=== PATIENT | female | born 1955 | race Caucasian/White ===

== ENCOUNTER 2017-06-22 08:19 | Inpatient (IN) | payer OTHER ==
[~2017-06-22] VITALS: Ht 152.4 cm; Wt 72.6 kg
[2017-06-22 08:35] VITALS: BP_SYST 160
[2017-06-22 09:09] LABS: BASOPHILS # (AUTO) 0.1 K/uL (0.0-0.2); BASOPHILS % (AUTO) 0.7 % (0.0-2.0); EOSINOPHILS # (AUTO) 0.3 K/uL (0.0-0.4); EOSINOPHILS % (AUTO) 3.2 % (0.0-4.0); HEMATOCRIT 46.6 % (36-48); HEMOGLOBIN 15.5 g/dL (12.0-16.0); LYMPHOCYTES # (AUTO) 2.6 K/uL (1.0-5.5); LYMPHOCYTES % (AUTO) 25.9 % (20.5-51.5); MEAN CORPUSCULAR HEMOGLOBIN 30 pg (27-31); MEAN CORPUSCULAR HGB CONC 33 % (32-36); MEAN CORPUSCULAR VOLUME 91 fL (79.0-98.0); MONOCYTES # (AUTO) 0.4 K/uL (0.0-1.0); MONOCYTES % (AUTO) 4.1 % (1.7-9.3); NEUTROPHILS # (AUTO) 6.6 K/uL (1.8-7.7); NEUTROPHILS % (AUTO) 66.1 % (40.0-70.0); PLATELET COUNT (AUTO) 240 K/uL (130-430); RED BLOOD CELL COUNT(AUTO) 5.11 MIL/uL (4.2-6.2); RED CELL DISTRIBUTION WIDTH 12.6 % (9.0-15.0)
[2017-06-22 09:25] LABS: BILIRUBIN,URINE NEGATIVE (NEGATIVE); BLOOD, URINE 1+ (NEGATIVE); CLARITY/URINE SL HAZY (CLEAR); COLOR,URINE YELLOW (YELLOW); GLUCOSE,URINE NEGATIVE (NEGATIVE); KETONES,URINE NEGATIVE (NEGATIVE); LEUKOCYTE ESTERASE ,URINE TRACE (NEGATIVE); NITRITE, URINE NEGATIVE (NEGATIVE); PROTEIN URINE NEGATIVE (NEGATIVE); UROBILINOGEN,URINE 0.2 (0.2-1.0)
[2017-06-22 09:27] LABS: CALCIUM 9.1 mg/dL (8.4-11.0); CREATININE 0.69 mg/dL (0.55-1.30); POTASSIUM 3.5 mmol/L (3.5-5.1)
[2017-06-22 09:32] LABS: ALBUMIN 3.9 g/dL (3.4-4.8); TOTAL BILIRUBIN 1.1 mg/dL (0.0-1.0)
[2017-06-22 09:36] LABS: INR 0.9 (0.8-1.2); PROTHROMBIN TIME 9.4 SECS (9.5-12.5)
[2017-06-22 09:54] LABS: BACTERIA,URINE FEW /HPF (None Seen); MUCUS,URINE 1+ /LPF (None Seen)
[2017-06-22] MEDS ORDERED: LOSA100T11 PO (10:08)
[2017-06-22] MEDS ORDERED: HYDR25TA4 PO (10:08)
[2017-06-22] MEDS ORDERED: NIFE20CA PO (10:08)
[2017-06-22] MEDS ORDERED: LORazepam 2 MG/ML VIAL (FOR ER USE) IVP ONE (10:15)
[2017-06-22 11:00] VITALS: BP_SYST 159
[2017-06-22 11:27] VITALS: BP_SYST 148
[2017-06-22 16:29] VITALS: BP_SYST 132
[2017-06-22 19:38] VITALS: BP_SYST 145
[2017-06-22] MEDS ORDERED: DEXTROSE 50% JECT 50 ML DISP.SYRIN IVP PRN (23:30)
[2017-06-23 00:32] VITALS: BP_SYST 156
[2017-06-23 03:49] VITALS: BP_SYST 146
[2017-06-23] MEDS: INSULIN REGULAR, HUMAN 100 UNITS/ML, 10 ML VIAL (novoLIN R) SUBCUT PRN ×3 (06:09→17:59)
[2017-06-23] MEDS ORDERED: ASPIRIN 325 MG TABLET PO SCH (09:00)
[2017-06-23] MEDS ORDERED: HYDROCHLOROTHIAZIDE 25 MG TABLET (HCTZ) PO SCH (09:00)
[2017-06-23] MEDS ORDERED: LOSARTAN POTASSIUM 50 MG TABLET (COZAAR) PO SCH (09:00)
[2017-06-23 12:49] VITALS: BP_SYST 153
[2017-06-23 16:00] VITALS: BP_SYST 141
[2017-06-23] MEDS ORDERED: GLU500 PO (16:18)
[2017-06-23] MEDS ORDERED: ASPI325T2 PO (16:19)
[2017-06-23] MEDS ORDERED: LIP10 PO (16:19)
[2017-06-23 19:32] VITALS: BP_SYST 150
== END 2017-06-23 19:50 | disposition home or self-care (01) | DRG 69 ==
LOC: SED 08:19 → STU 10:35
PROVIDERS: ADMIT Internal Medicine Hospice and Palliative Medicine; ATTEND Internal Medicine Hospice and Palliative Medicine
DX: G45.9 Transient cerebral ischemic attack, unspecified (principal); E11.9 Type 2 diabetes mellitus without complications; E78.00 Pure hypercholesterolemia, unspecified; F17.210 Nicotine dependence, cigarettes, uncomplicated; J45.909 Unspecified asthma, uncomplicated; I10 Essential (primary) hypertension; Z91.19 Patient's noncompliance with other medical treatment and regimen; Z90.49 Acquired absence of other specified parts of digestive tract; Z88.0 Allergy status to penicillin; Z88.5 Allergy status to narcotic agent; Z79.899 Other long term (current) drug therapy
CPT/HCPCS: 36415; 70450-TC; 70551; 71010; 80053; 80061; 81000-TC; 82962; 83880; 84443-TC; 84484; 85025; 85610-TC; 85730-TC; 87086; 93005; 93306; 93880; 96374; 99285; J1815; J2060

== ENCOUNTER 2017-07-28 08:26 | Outpatient (CLI) | payer OTHER ==
[~2017-07-28 08:26] MED LIST: ASPI325T2 PO; GLU500 PO; HYDR25TA4 PO; LIP10 PO; LOSA100T11 PO; NIFE20CA PO
== END 2017-07-28 19:17 | disposition home or self-care (01) ==
LOC: SMA 08:26
PROVIDERS: ATTEND Family Medicine
DX: Z12.31 Encounter for screening mammogram for malignant neoplasm of breast (principal)
CPT/HCPCS: G0202

== ENCOUNTER 2018-02-01 10:50 | Outpatient (CLI) | payer OTHER | END 2018-02-01 19:01 | disposition home or self-care (01) | LOC: SRD 10:50 | PROVIDERS: ATTEND Family Medicine | DX: M17.12 Unilateral primary osteoarthritis, left knee (principal); I10 Essential (primary) hypertension; E11.9 Type 2 diabetes mellitus without complications; E78.00 Pure hypercholesterolemia, unspecified; Z79.899 Other long term (current) drug therapy | CPT/HCPCS: 73564 ==

== ENCOUNTER 2019-05-27 15:19 | Outpatient (CLI) | payer OTHER ==
[~2019-05-27 15:19] MED LIST changes: +ASPI-989 PO; -ASPI325T2 PO; -LOSA100T11 PO; +LOSA100T3 PO
== END 2019-05-27 20:59 | disposition home or self-care (01) ==
LOC: SRD 15:19
PROVIDERS: ATTEND Family Medicine
DX: J45.909 Unspecified asthma, uncomplicated (principal)
CPT/HCPCS: 71046-TC

== ENCOUNTER 2021-12-18 17:18 | Emergency (ER) | payer OTHER ==
[~2021-12-18] VITALS: Ht 152.4 cm; Wt 79.4 kg
--- NOTE | 2021-12-18 17:32 | NUR ---
Placed in room 08 . Placed on instructional developer, blood pressure machine and pulse oximeter. To gown for exam. Side rails up.
[2021-12-18 17:34] VITALS: BP_SYST 166
--- NOTE | 2021-12-18 17:40 | NUR ---
PT HERE FOR SOB AND WHEEZING X2 WEEKS GETTING WORSE RECENTLY. PT ABLE TO SPEAK FULL SENTENCES. NO ACUTE DISTRESS.
[2021-12-18] MEDS ORDERED: PROMETHAZINE-DM 6.25 MG-15 MG/5 ML UDC PO ONE (18:30)
[2021-12-18] MEDS ORDERED: cefTRIAXone 1 GM IVPB PREMIX 50 ML IV ONE (18:30)
[2021-12-18] MEDS ORDERED: NACL 0.9% 1,000 ML IV ONE (18:30)
[2021-12-18] MEDS ORDERED: LevALBUTEROL HCL 1.25 MG/0.5 ML *CONC.* VIAL.NEB (XOPENEX CONC.) INH ONE ×2 (18:30→19:30)
[2021-12-18 18:45] LABS: BASOPHILS % (AUTO) 0.3 % (0.0-2.0); HEMOGLOBIN 15.2 g/dL (12.0-16.0); LYMPHOCYTES # (AUTO) 1.9 K/uL (1.0-5.5); LYMPHOCYTES % (AUTO) 16.2 % (20.5-51.5); MEAN CORPUSCULAR HEMOGLOBIN 32 pg (27-31); MEAN CORPUSCULAR HGB CONC 35 % (32-36); MEAN CORPUSCULAR VOLUME 92 fL (79.0-98.0); MONOCYTES # (AUTO) 0.7 K/uL (0.0-1.0); MONOCYTES % (AUTO) 5.7 % (1.7-9.3); NEUTROPHILS # (AUTO) 9.2 K/uL (1.8-7.7); NEUTROPHILS % (AUTO) 77.8 % (40.0-70.0); PLATELET COUNT (AUTO) 233 K/uL (130-430); RED CELL DISTRIBUTION WIDTH 13.9 % (9.0-15.0); WHITE BLOOD COUNT (AUTO) 11.9 K/uL (4.8-10.8)
[2021-12-18 18:48] LABS: CALCIUM 8.7 mg/dL (8.4-11.0); CREATININE 0.68 mg/dL (0.55-1.30); POTASSIUM 3.1 mmol/L (3.5-5.1)
[2021-12-18 18:54] LABS: ALBUMIN 3.5 g/dL (3.4-4.8); TOTAL BILIRUBIN 0.6 mg/dL (0.0-1.0)
[2021-12-18 20:43] LABS: BILIRUBIN,URINE NEGATIVE (NEGATIVE); BLOOD, URINE NEGATIVE (NEGATIVE); CLARITY/URINE CLEAR (CLEAR); COLOR,URINE YELLOW (YELLOW); GLUCOSE,URINE 3+ (NEGATIVE); KETONES,URINE NEGATIVE (NEGATIVE); LEUKOCYTE ESTERASE ,URINE NEGATIVE (NEGATIVE); NITRITE, URINE NEGATIVE (NEGATIVE); PH,URINE 6.5 (5.0-8.0); PROTEIN URINE NEGATIVE (NEGATIVE); UROBILINOGEN,URINE 0.2 (0.2-1.0)
[2021-12-18 20:52] LABS: RBC,URINE 0-3 /HPF (0-3); WBC,URINE 0-3 /HPF (0-3)
[2021-12-18 20:53] LABS: YEAST,URINE Few /HPF (None Seen)
[2021-12-18 20:54] LABS: BACTERIA,URINE RARE /HPF (None Seen); HYALINE CASTS, URINE 0-10 /LPF (None Seen); MUCUS,URINE 2+ /LPF (None Seen)
[2021-12-18] MEDS ORDERED: LEVO750T45 PO (21:17)
[2021-12-18 21:50] VITALS: BP_SYST 149
--- NOTE | 2021-12-18 21:51 | NUR ---
iv d/c and drsg applied and pt stable adn ambulates well upn d/c home with
== END 2021-12-18 21:51 | disposition home or self-care (01) ==
LOC: SED 17:18
DX: J45.901 Unspecified asthma with (acute) exacerbation (principal); J18.9 Pneumonia, unspecified organism; E11.9 Type 2 diabetes mellitus without complications; I10 Essential (primary) hypertension; Z88.0 Allergy status to penicillin; Z71.6 Tobacco abuse counseling; Z88.2 Allergy status to sulfonamides; F17.290 Nicotine dependence, other tobacco product, uncomplicated
CPT/HCPCS: 36415; 36600; 80053; 81000; 82803; 83605; 85025; 87040; 87086; 93005; 94640; 96365; 99284; 99406; J0696; J7612

== ENCOUNTER 2022-08-07 17:56 | Emergency (ER) | payer OTHER ==
[~2022-08-07] VITALS: Ht 149.9 cm; Wt 81.6 kg
[~2022-08-07 17:56] MED LIST changes: +LEVO750T64 PO
[2022-08-07 18:35] VITALS: BP_SYST 138
[2022-08-07 22:04] VITALS: BP_SYST 138
== END 2022-08-07 22:04 | disposition left against medical advice (07) ==
LOC: SED 17:56
DX: R53.1 Weakness (principal); Z53.21 Procedure and treatment not carried out due to patient leaving prior to being seen by health care provider

== ENCOUNTER 2024-03-01 14:55 | Emergency (ER) | payer OTHER ==
[~2024-03-01] VITALS: Ht 149.9 cm; Wt 74.8 kg
[~2024-03-01 14:55] MED LIST changes: +LOSA-415 PO; -LOSA100T3 PO
[2024-03-01 15:03] VITALS: BP_SYST 169; RESP 17; O2SAT 98
[2024-03-01] MEDS: KETOROLAC TROMETHAMINE 15 MG VIAL IM ONE (15:45)
[2024-03-01] MEDS: ACETAMINOPHEN 500 MG TABLET PO ONE (15:45)
[2024-03-01 16:52] LABS: BASOPHILS % (AUTO) 0.5 % (0.0-2.0); EOSINOPHILS # (AUTO) 0.2 K/uL (0.0-0.4); EOSINOPHILS % (AUTO) 3.3 % (0.0-4.0); HEMATOCRIT 40.5 % (36-48); HEMOGLOBIN 14.2 g/dL (12.0-16.0); LYMPHOCYTES % (AUTO) 14.9 % (20.5-51.5); MEAN CORPUSCULAR HEMOGLOBIN 32 pg (27-31); MEAN CORPUSCULAR HGB CONC 35 % (32-36); MEAN CORPUSCULAR VOLUME 92 fL (79.0-98.0); MONOCYTES # (AUTO) 0.7 K/uL (0.0-1.0); MONOCYTES % (AUTO) 9.7 % (1.7-9.3); NEUTROPHILS # (AUTO) 4.9 K/uL (1.8-7.7); NEUTROPHILS % (AUTO) 71.6 % (40.0-70.0); PLATELET COUNT (AUTO) 199 K/uL (130-430); RED BLOOD CELL COUNT(AUTO) 4.38 MIL/uL (4.2-6.2); RED CELL DISTRIBUTION WIDTH 13.9 % (9.0-15.0); WHITE BLOOD COUNT (AUTO) 6.9 K/uL (4.8-10.8)
[2024-03-01 17:27] LABS: ALANINE AMINOTRANSFERASE 24 U/L (12-78); ALBUMIN 3.5 g/dL (3.4-4.8); ANION GAP 7 (5-15); ASPARTATE AMINOTRANSFERASE 10 U/L (10-37); CALCIUM 8.8 mg/dL (8.4-11.0); CARBON DIOXIDE 29 mmol/L (23-29); CHLORIDE 105 mmol/L (98-107); CREATININE 0.46 mg/dL (0.55-1.30); GLUCOSE 129 mg/dL (74-106); POTASSIUM 3.1 mmol/L (3.5-5.1); SODIUM SERUM 141 mmol/L (136-145); TOTAL BILIRUBIN 0.9 mg/dL (0.0-1.0); TOTAL PROTEIN, SERUM 7.2 g/dL (6.4-8.3); UREA NITROGEN, BLOOD 13 mg/dL (8-21)
[2024-03-01 18:59] LABS: BILIRUBIN,URINE NEGATIVE (NEGATIVE); CLARITY/URINE CLOUDY (CLEAR); COLOR,URINE YELLOW (YELLOW); GLUCOSE,URINE NEGATIVE (NEGATIVE); KETONES,URINE NEGATIVE (NEGATIVE); LEUKOCYTE ESTERASE ,URINE 1+ (NEGATIVE); NITRITE, URINE POSITIVE (NEGATIVE); PH,URINE 7.5 (5.0-8.0); PROTEIN URINE TRACE (NEGATIVE); UROBILINOGEN,URINE 0.2 (0.2-1.0)
[2024-03-01] MEDS: POTASSIUM CHLORIDE 20 MEQ/PKT PACKET PO ONE (19:04)
[2024-03-01 19:05] LABS: BLOOD, URINE TRACE (NEGATIVE)
[2024-03-01 19:08] LABS: BACTERIA,URINE MANY /HPF (None Seen); MUCUS,URINE None Seen /LPF (None Seen); RBC,URINE 0-3 /HPF (0-3); WBC,URINE 20-50 /HPF (0-3)
[2024-03-01] MEDS: NITROFURANTOIN MONOHYD/M-CRYST 100 MG CAPSULE (MacroBID) PO ONE (20:22)
[2024-03-01] MEDS ORDERED: NITR-85 PO (20:54)
[2024-03-01] MEDS ORDERED: ACET-2634 PO (20:54)
[2024-03-01 21:40] VITALS: BP_SYST 164; PULSE 78; RESP 18; TEMP 98; O2SAT 96
== END 2024-03-01 21:40 | disposition home or self-care (01) ==
LOC: SED 14:55
DX: R60.0 Localized edema (principal); N39.0 Urinary tract infection, site not specified; R53.1 Weakness; E87.6 Hypokalemia; J45.909 Unspecified asthma, uncomplicated; E11.9 Type 2 diabetes mellitus without complications; I10 Essential (primary) hypertension; Z88.0 Allergy status to penicillin; Z88.2 Allergy status to sulfonamides; Z86.59 Personal history of other mental and behavioral disorders
CPT/HCPCS: 36415; 71045; 73502; 73552; 80053; 81000; 81001; 81015; 83880; 85025; 87086; 93970; 96372; 99285; J1885

== ENCOUNTER 2024-03-02 04:30 | Emergency (ER) | payer OTHER ==
[~2024-03-02] VITALS: Ht 154.9 cm; Wt 72.6 kg
[~2024-03-02 04:30] MED LIST changes: +ACET-2634 PO; +NITR-85 PO
[2024-03-02 04:38] VITALS: BP_SYST 157; PULSE 68; RESP 18; TEMP 99; O2SAT 94
[2024-03-02 06:45] LABS: BASOPHILS % (AUTO) 0.4 % (0.0-2.0); EOSINOPHILS % (AUTO) 0.4 % (0.0-4.0); HEMATOCRIT 40.9 % (36-48); LYMPHOCYTES # (AUTO) 0.6 K/uL (1.0-5.5); MEAN CORPUSCULAR HEMOGLOBIN 32 pg (27-31); MEAN CORPUSCULAR HGB CONC 34 % (32-36); MEAN CORPUSCULAR VOLUME 93 fL (79.0-98.0); MONOCYTES # (AUTO) 0.6 K/uL (0.0-1.0); MONOCYTES % (AUTO) 8.1 % (1.7-9.3); NEUTROPHILS # (AUTO) 6.6 K/uL (1.8-7.7); NEUTROPHILS % (AUTO) 83.1 % (40.0-70.0); PLATELET COUNT (AUTO) 193 K/uL (130-430); RED BLOOD CELL COUNT(AUTO) 4.39 MIL/uL (4.2-6.2); RED CELL DISTRIBUTION WIDTH 13.8 % (9.0-15.0); WHITE BLOOD COUNT (AUTO) 7.9 K/uL (4.8-10.8)
[2024-03-02 07:43] LABS: ALANINE AMINOTRANSFERASE 26 U/L (12-78); ALBUMIN 3.4 g/dL (3.4-4.8); ANION GAP 7 (5-15); ASPARTATE AMINOTRANSFERASE 11 U/L (10-37); CALCIUM 8.9 mg/dL (8.4-11.0); CARBON DIOXIDE 27 mmol/L (23-29); CHLORIDE 105 mmol/L (98-107); CREATININE 0.53 mg/dL (0.55-1.30); GLUCOSE 213 mg/dL (74-106); POTASSIUM 3.5 mmol/L (3.5-5.1); SODIUM SERUM 139 mmol/L (136-145); TOTAL PROTEIN, SERUM 7.4 g/dL (6.4-8.3); UREA NITROGEN, BLOOD 16 mg/dL (8-21)
[2024-03-02 07:45] LABS: BILIRUBIN,DIRECT 0.2 mg/dL (0.0-0.3)
[2024-03-02 12:31] VITALS: BP_SYST 159; PULSE 78; RESP 24; TEMP 96.8; O2SAT 92
== END 2024-03-02 12:30 | disposition admitted as inpatient to this hospital (09) ==
LOC: SED 04:30
DX: R62.7 Adult failure to thrive (principal); R53.1 Weakness; J45.909 Unspecified asthma, uncomplicated; E11.9 Type 2 diabetes mellitus without complications; I10 Essential (primary) hypertension; F32.A Depression, unspecified; Z88.2 Allergy status to sulfonamides; Z88.0 Allergy status to penicillin; Z79.899 Other long term (current) drug therapy; Z79.2 Long term (current) use of antibiotics
CPT/HCPCS: 36415; 71045; 80048; 80076; 83605; 83880; 84484; 85025; 99285